=== PATIENT | male | born 1950 | race Two or more races ===

== ENCOUNTER 2023-03-20 08:44 | Day surgery (SDC) | payer MEDICARE, MEDICAID, SELFPAY ==
[2023-03-19 12:57] VITALS: BMI 35.8
[2023-03-20] VITALS (9 sets, daily range): BP systolic 114–177; BP diastolic 61–85; PULSE 60–64; RESP 18; TEMP 36.1–36.4; O2SAT 99–100
== END 2023-03-20 11:45 | disposition home or self-care (01) ==
PROVIDERS: Visit Provider Ophthalmology
PROC: (CPT 66984; principal; 2023-03-20 11:30)
DX: H25.812 Combined forms of age-related cataract, left eye (principal)
CPT/HCPCS: 66984; V2632